=== PATIENT | female | born 1995 | race Caucasian/White ===

== ENCOUNTER 2017-01-25 21:49 | Emergency (ER) | payer OTHER ==
[~2017-01-25] VITALS: Ht 157.5 cm; Wt 62.4 kg
[2017-01-25 21:54] VITALS: BP 130/70; PULSE 100; RESP 16; TEMP 98.3; O2SAT 100
--- NOTE | 2017-01-25 23:05 | PD ---
HPI . Laceration to left eyebrow Chief Complaint: Laceration/Skin Injury Time Seen by Provider: 22:23 Travel History International Travel<30 days: No Contact w/Intl Traveler<30days: No Traveled to known affect area: No History of Present Illness HPI 21-year-old female presents to the emergency room for evaluation of left eyebrow laceration that was sustained this evening when she slipped off the couch and bumped the corner of the coffee table. Patient denies any major medical history. Patient states she is up-to-date on her tetanus shot but will confirm with her primary care to make sure. Patient is neurologically intact. There is no other injury outside the 1 m laceration to the left eyebrow. There is no ecchymosis or edema to the eye or the face surrounding the laceration. PFSH Past Medical History Diminished Hearing: No Tetanus Vaccination: Unknown Influenza Vaccination: Yes ?: Not Social History Alcohol Use: Yes (occ) Tobacco Use: No Substance Use: No Allergies-Medications (Allergen,Severity, Reaction): Coded Allergies: cefprozil (Verified Allergy, Severe, Hives, 01/25/17) Review of Systems Except as stated in HPI: all other systems reviewed are Neg Physical Exam Narrative GENERAL: Well-nourished, well-developed 21-year-old female patient in no acute distress. Nontoxic appearing. SKIN: 1 cm Laceration to left eyebrow. No ecchymosis or erythema or edema noted. HEAD: Normocephalic. Laceration to left eyebrow otherwise atraumatic. NEUROLOGICAL: Awake and alert. Cranial nerves II through XII intact. Motor and sensory grossly within normal limits. Five out of 5 muscle strength in all muscle groups. Normal speech. EYES: No scleral icterus. No injection or drainage. NECK: Supple, trachea midline. No JVD or lymphadenopathy. CARDIOVASCULAR: Regular rate and rhythm without murmurs, gallops, or rubs. RESPIRATORY: Breath sounds equal bilaterally. No accessory muscle use. GASTROINTESTINAL: Abdomen soft, non-tender, nondistended. MUSCULOSKELETAL: No cyanosis, or edema. BACK: Nontender without obvious deformity. No CVA tenderness. Data Data Last Documented VS Vital Signs Date Time Temp Pulse Resp B/P (MAP) Pulse Ox O2 Delivery O2 Flow Rate FiO2 01/25/17 21:54 98.3 100 16 130/70 (90) 100 [facility] Medical Decision Making Medical Screen Exam Complete: Yes Emergency Medical Condition: Yes Differential Diagnosis Differential diagnoses include but are not limited to laceration, fall, contusion Narrative Course 21-year-old female presents emergency department for evaluation of laceration she sustained a left eyebrow after she slipped off the couch this evening. Patient is unsure if she has loss consciousness however states that she has no neurological deficits, no blurred vision, no bouts of confusion and no nausea and would prefer to defer any radiological treatments at this time. Patient states she will return to the emergency department promptly if any change in neurological status occurs. He has a friend that is at bedside that states that she will be responsible to bring her back to the emergency Department with any sudden change in neurologic status or nausea vomiting. Laceration to the left eyebrow was cleaned thoroughly with half Betadine after normal saline and was repaired with Dermabond. Patient will be discharged home with instructions to follow-up with her primary care. Diagnosis Primary Impression: Facial laceration Qualified Codes: S01.81XA - Laceration without foreign body of other part of head, initial encounter Patient Instructions: General Instructions, Laceration (ED) Additional Instructions: Please return to emergency department if your symptoms return or worsen. Follow up with your primary care provider. Keep area clean and dry. May use [id number] Motrin or Tylenol as needed for pain. Disposition: 01 DISCHARGE HOME Condition: Stable Maria Muhammad Jan 25, 2017 23:05
== END 2017-01-25 23:19 | disposition home or self-care (01) ==
LOC: PHED 21:49 → PHEFT 23:19
DX: S01.112A Laceration without foreign body of left eyelid and periocular area, initial encounter (principal); W08.XXXA Fall from other furniture, initial encounter
CPT/HCPCS: 12011